=== PATIENT | male | born 1955 | race Caucasian/White ===

== ENCOUNTER 2017-12-08 15:31 | Emergency (ER) | payer BC ==
[2017-12-08 16:02] VITALS: BP 119/82
--- NOTE | 2017-12-08 17:18 | UC ---
Lower Extremity/Ankle HPI - HPI Summary HPI Summary: 62 y/o male presents to the urgent care c/o right foot pain for the past 3 months. Pain is localized at the bottom of mid foot and has increase w/ time, specially w/ walking. 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 Pt states yesterday he steeped in a stone accidentally and pain worsen. Pain now is 2/10 at rest and 9/10 w/ walking. Pt can move ankle w/o any difficulty. Pt took Motrin 400mg PO this morning to alleviate symptoms. Pt denies numbness or tinglings sensation over the Rt foot, any injury , calf pian, SOB, palpitations, chest pain, abdominal pain, N/V/D. - History of Current Complaint Chief Complaint: UCLowerExtremity Stated Complaint: RIGHT FOOT INJURY Time Seen by Provider: 12/08/17 17:17 Hx Obtained From: Patient Onset/Duration: Gradual Onset Severity Initially: Mild Pain Intensity: 9 - walking Pain Scale Used: 0-10 Numeric Aggravating Factor(s): Ambulation Alleviating Factor(s): Rest, Elevation, OTC Meds Able to Bear Weight: Yes - Risk Factors Gout Risk Factors: Negative DVT Risk Factors: Negative Septic Arthritis Risk Factor: Negative - Allergies/Home Medications Allergies/Adverse Reactions: Allergies Allergy/AdvReac Type Severity Reaction Status Date / Time No Known Allergies Allergy Verified 12/08/17 16:02 Home Medications: Home Medications Metoprolol Succinate 1 tab PO DAILY 12/08/17 [History Confirmed 12/08/17] PMH/Surg Hx/FS Hx/Imm Hx Previously Healthy: Yes Cardiovascular History: Hypertension - Surgical History Surgical History: Yes Surgery Procedure, Year, and Place: Lung surgery for pneumothorax spontaneous . Appendectomy 2008 - Family History Known Family History: Positive: Hypertension - Social History Occupation: Employed Full-time Lives: With Family Alcohol Use: None Substance Use Type: None Smoking Status (MU): Former Smoker Type: Cigarettes Amount Used/How Often: 2 ppd Length of Time of Smoking/Using Tobacco: 20 years Have You Smoked in the Last Year: No When Did the Patient Quit Smoking/Using Tobacco: Review of Systems Constitutional: Negative Skin: Negative Eyes: Negative ENT: Negative Respiratory: Negative Cardiovascular: Negative Gastrointestinal: Negative Genitourinary: Negative Motor: Negative Neurovascular: Negative Musculoskeletal: Decreased ROM - RT foot, Other: - RT foot pain Neurological: Negative Is Patient Immunocompromised?: No All Other Systems Reviewed And Are Negative: Yes Physical Exam - Summary Physical Exam Summary: Vital Signs Reviewed: Yes General : well developed, well nourished male w/o any apparent distress Eyes: Positive: Conjunctiva Clear - PERRLA, EOMI ENT: Positive: Normal ENT inspection, Hearing grossly normal, Pharynx normal, TMs normal Neck: Positive: Supple, Nontender, No Lymphadenopathy Respiratory: Positive: Chest non-tender, Lungs clear, Normal breath sounds, No respiratory distress Cardiovascular: Positive: RRR, No Murmur, Pulses Normal Abdomen Description: Positive: Nontender, No Organomegaly, Soft. Negative: CVA Tenderness (R), CVA Tenderness (L) Bowel Sounds: Positive: Present Musculoskeletal: Positive: Strength Intact, ROM Intact, No Edema, RT Foot/Toes: Pt is able to bear weight but ambulate with mild limping. RT foot :No surface trauma, ecchymosis, erythema, lesions, ulcers or break in skin integrity. The R foot is without obvious asymmetry or deformity when compared to the L foot. No bony step-off, No tenderness to palpation over toes, point tenderness over the solel side of mid foot and hindfoot, Decrease plantar/dorsiflexion, inversion/ eversion due to pain. Distal motor and neurovascular status are intact. Neurological Exam: Normal Psychological Exam: Normal Skin Exam: Normal Triage Information Reviewed: Yes Vital Signs: Initial Vital Signs Temp 98.6 F 12/08/17 15:59 Pulse 94 12/08/17 15:59 Resp 12 12/08/17 15:59 BP 119/82 12/08/17 15:59 Pulse Ox 98 12/08/17 15:59 Lower Extremity Course/Dx - Course Course Of Treatment: 62 y/o male presents to the urgent care c/o right foot pain for the past 3 months. Pain is localized at the bottom of mid foot and has increase w/ time, specially w/ walking. 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 Pt states yesterday he steeped in a stone accidentally and pain worsen. Pain now is 2/10 at rest and 9/ 10 w/ walking. Pt can move ankle w/o any difficulty. Pt took Motrin 400mg PO this morning to alleviate symptoms. Pt denies numbness or tinglings sensation over the Rt foot, any injury, calf pian, SOB, palpitations, chest pain, abdominal pain, N/V/D.Hx obtained.RT foot X-ray ordered, Impression:There was no fracture, dislocation, soft tissue swelling or FB noted. Probably plantar fasciitis or tendonitis. Pt's foot immobilized with magdy-bandage and given a post -op shoe to avoid flexion. Advised RICE, and Rx Ibuprofen PO for pain, If not improvement of symptoms to f/u with Orthopedic DR Porter referral for further evaluation and treatment. Pt understood and agreed with D/C instructions and left clinic ambulating. - Differential Dx/Diagnosis Differential Diagnosis/HQI/PQRI: Arthritis, Contusion, Dislocation, Fracture ( Closed), Gout, Sprain, Strain, Tendonitis, Other - plantar fasciitis Provider Diagnoses: 1- RT foot pain. 2- Rt foot plantar fasciitis Discharge - Sign-Out/Discharge Documenting (check all that apply): Patient Departure - D/c home All imaging exams completed and their final reports reviewed: Yes - Discharge Plan Condition: Stable Disposition: HOME Prescriptions: Ibuprofen TAB* [Motrin TAB* 800 MG] 800 mg PO Q6H PRN #30 tab PRN Reason: Pain Patient Education Materials: Plantar Fasciitis (ED) Referrals: Keila Gaytan [Primary Care Provider] - 1 Week Stephen Porter MD [Medical Doctor] - 1 Week Additional Instructions: 1-Please take Ibuprofen PO as directed after meals to alleviate pain and swelling. 2-Please apply ice, keep your foot immobilized with the Magdy bandage and avid flexion w/ the post-op shoe. Avoid strenuous exercise or standing for long periods of time 3- Please f/u with orthopedic Dr Porter or your PCP in 1 week if not improvement of symptoms for further evaluation and treatment. - Billing Disposition and Condition Condition: STABLE Disposition: Home - Attestation Statements Provider Attestation: Per institutional requirements, I have reviewed the chart, however, I was not consulted specifically or made aware of this patient by the midlevel provider. I did not personally evaluate, interact with , or disposition this patient.
--- NOTE | 2017-12-08 18:00 | RAD ---
INDICATION: 3 months of right plantar foot pain after " stepping on a rock" COMPARISON: None. TECHNIQUE: 3 views of the right foot were obtained. FINDINGS: The adequately corticated bones are properly aligned. Joint spaces appear maintained. No fracture, dislocation or focal bony abnormality is seen. IMPRESSION: Normal radiograph of the right foot. If the patient's symptoms persist, follow-up imaging is recommended.
== END 2017-12-08 18:37 | disposition home or self-care (01) ==
LOC: UCEAST 15:31
DX: Z87.891 Personal history of nicotine dependence (principal); M72.2 Plantar fascial fibromatosis; I10 Essential (primary) hypertension
CPT/HCPCS: 99203; G0463

== ENCOUNTER 2018-05-26 17:04 | Emergency (ER) | payer BC ==
[2018-05-26 17:20] VITALS: BP 144/93
--- NOTE | 2018-05-26 17:38 | UC ---
Ear Complaint HPI - HPI Summary HPI Summary: 62 yo male presents with right ear pain and decreased hearing. He tells me that for the last week he has been having "cold symptoms" and sinus congestion, but these are improving. Over the last 3 days he has had right ear pain and decreased hearing. Has been taking sudafed OTC. Denies fever, chills, sore throat, cough. - History of Current Complaint Chief Complaint: UCEar Stated Complaint: EAR ACHE Time Seen by Provider: 05/26/18 17:38 Hx Obtained From: Patient Onset/Duration: Sudden Onset Severity Initially: Mild Severity Currently: Mild Pain Intensity: 2 Pain Scale Used: 0-10 Numeric - Allergies/Home Medications Allergies/Adverse Reactions: Allergies Allergy/AdvReac Type Severity Reaction Status Date / Time No Known Allergies Allergy Verified 05/26/18 17:21 Home Medications: Home Medications Losartan Potassium 100 mg PO 05/26/18 [History] PMH/Surg Hx/FS Hx/Imm Hx Cardiovascular History: Hypertension - Surgical History Surgical History: Yes Surgery Procedure, Year, and Place: Lung surgery for pneumothorax spontaneous . Appendectomy 2008 - Family History Known Family History: Positive: Hypertension - Social History Lives: With Family Alcohol Use: None Substance Use Type: None Smoking Status (MU): Former Smoker Type: Cigarettes Amount Used/How Often: 2 ppd Length of Time of Smoking/Using Tobacco: 20 years Have You Smoked in the Last Year: No When Did the Patient Quit Smoking/Using Tobacco: Review of Systems All Other Systems Reviewed And Are Negative: Yes Constitutional: Positive: Negative Skin: Positive: Negative Eyes: Positive: Negative ENT: Positive: Ear Ache, Nasal Discharge, Sinus Congestion Respiratory: Positive: Negative Cardiovascular: Positive: Negative Gastrointestinal: Positive: Negative Neurovascular: Positive: Negative Neurological: Positive: Negative Psychological: Positive: Negative Physical Exam - Summary Physical Exam Summary: GENERAL: NAD. WDWN. No pain distress. SKIN: No rashes, sores, lesions, or open wounds. HEENT: Head: AT/NC Eyes: EOM intact. Conjunctiva clear without inflammation or discharge. Ears: Hearing grossly normal. RIGHT TM occluded by brown hard cerumen. S/p irrigation and disimpaction. TMs intact, no bulging, erythema, or edema. Nose: Nasal mucosa pink and moist. NTTP maxillary and frontal sinus. Throat: Posterior oropharynx without exudates, erythema, or tonsillar enlargement. Uvula midline. NECK: Supple. Nontender. No lymphadenopathy. CHEST: CTAB. No r/r/w. No accessory muscle use. Breathing comfortably and in no distress. CV: RRR. Without m/r/g. Pulses intact. Cap refill <2seconds NEURO: Alert. PSYCH: Age appropriate behavior. Triage Information Reviewed: Yes Vital Signs: Initial Vital Signs Temp 99.0 F 05/26/18 17:17 Pulse 69 05/26/18 17:17 Resp 18 05/26/18 17:17 BP 144/93 05/26/18 17:17 Pulse Ox 99 05/26/18 17:17 Vital Signs Reviewed: Yes Ear Complaint Course/Dx - Course Course Of Treatment: Right ear cerumen impaction with successful disimpaction with irrigation. Pt experienced significant relief of his discomfort. - Differential Dx/Diagnosis Provider Diagnosis: Cerumen impaction Discharge - Sign-Out/Discharge Documenting (check all that apply): Patient Departure All imaging exams completed and their final reports reviewed: No Studies - Discharge Plan Condition: Stable Disposition: HOME Patient Education Materials: Cerumen Impaction (ED) Referrals: Keila Gaytan [Primary Care Provider] - Additional Instructions: If you develop a fever, shortness of breath, chest pain, new or worsening symptoms - please call your PCP or go to the ED. Your blood pressure was high at todays visit. Please see your primary provider within 4 weeks for recheck and re-evaluation. - Billing Disposition and Condition Condition: STABLE Disposition: Home
== END 2018-05-26 18:31 | disposition home or self-care (01) ==
LOC: UCEAST 17:04
DX: H61.21 Impacted cerumen, right ear (principal); Z87.891 Personal history of nicotine dependence
CPT/HCPCS: 99212; G0463

== ENCOUNTER 2018-09-01 11:19 | Emergency (ER) | payer BC ==
--- NOTE | 2018-09-01 11:51 | UC ---
Respiratory Complaint HPI - HPI Summary HPI Summary: 63 yo male presents with sweating. He tells me that last night he developed a frontal headache. In the middle of the night he woke up and was "drenched" in sweat and he figured he had a fever, but did not take his temperature. This morning he felt that he was still "sweaty", thus took ibuprofen. His headache has nearly resolved and he feels much better overall after taking ibuprofen. He has been feeling well otherwise and is eating and drinking normally. He does not smoke currently, but he used to. Denies recent illness, dizziness, numbness , tingling, sinus symptoms, sore throat, cough, SOB, chest pain, abdominal pain , n/v/d/c, dysuria. He does have a PMH of "skipped heart beat" for which he takes metoprolol. - History of Current Complaint Chief Complaint: UCGeneralIllness Stated Complaint: FEVER/ACHES Time Seen by Provider: 09/01/18 11:51 Hx Obtained From: Patient Onset/Duration: Sudden Onset Severity Initially: Moderate Severity Currently: Moderate Pain Intensity: 5 Pain Scale Used: 0-10 Numeric - Allergies/Home Medications Allergies/Adverse Reactions: Allergies Allergy/AdvReac Type Severity Reaction Status Date / Time No Known Allergies Allergy Verified 09/01/18 11:35 Home Medications: Home Medications amLODIPine TAB* [Norvasc 5 mg TAB*] 5 mg PO DAILY 09/01/18 [History Confirmed ] PMH/Surg Hx/FS Hx/Imm Hx - Additional Past Medical History Additional PMH: Skipped heart beat Cardiovascular History: Hypertension - Surgical History Surgical History: Yes Surgery Procedure, Year, and Place: Lung surgery for pneumothorax spontaneous . Appendectomy 2008 - Family History Known Family History: Positive: Hypertension - Social History Lives: With Family Alcohol Use: None Substance Use Type: None Smoking Status (MU): Former Smoker Type: Cigarettes Amount Used/How Often: 2 ppd Length of Time of Smoking/Using Tobacco: 20 years Have You Smoked in the Last Year: No When Did the Patient Quit Smoking/Using Tobacco: Review of Systems All Other Systems Reviewed And Are Negative: Yes Constitutional: Positive: Other - sweats Skin: Positive: Negative Eyes: Positive: Negative ENT: Positive: Negative Respiratory: Positive: Negative Cardiovascular: Positive: Negative Gastrointestinal: Positive: Negative Genitourinary: Positive: Negative Motor: Positive: Negative Neurovascular: Positive: Negative Musculoskeletal: Positive: Negative Neurological: Positive: Headache Psychological: Positive: Negative Physical Exam - Summary Physical Exam Summary: GENERAL: NAD. WDWN. No pain distress. SKIN: No rashes, sores, ulcers, masses, lesions. HEENT: Head: AT/NC. Eyes: PERRLA. EOM intact. Conjunctiva clear without inflammation or discharge. Ears: Hearing grossly normal. TMs intact, no bulging, erythema, or edema. No hemotympanum Nose: Nasal mucosa pink and moist. NTTP maxillary and frontal sinus. Throat: Posterior oropharynx without exudates, erythema, or tonsillar enlargement. Uvula midline. NECK: Supple. Nontender. FROM CHEST: CTAB. No r/r/w. No accessory muscle use. Breathing comfortably and in no distress. CV: Skipped beat. Possible bigeminy vs trigeminy. Pulses intact. Brisk cap refill. ABDOMEN: Soft. NTTP. Bowel sounds present MSK: FROM in B/L UEs and LEs with symmetric strength. NEURO: A&Ox3. 3 word recall, remote, recent memory, ability to follow 2-step directions, and attention intact. CN: II: Peripheral villalobos intact. Vision normal. III, IV, : EOMI. No nystagmus. PERRLA. V: Sensations intact and symmetric. Opens mouth and clenches teeth. VII: No facial asymmetry. Forehead wrinkles. Grins, shuts eyes, frowns, puffs cheeks. VIII: Hearing intact to finger rub. IX, X: Swallows and coughs. Uvula midline. XI: Shrugs shoulders. Turns head against resistance. XII: No tongue deviation [id number] are intact. Gait with normal base. Romberg: maintains balance, no pronator drift. Normal speech. No facial drooping. PSYCH: Age appropriate behavior. Triage Information Reviewed: Yes Vital Signs: Initial Vital Signs Temp 97.5 F 09/01/18 11:29 Pulse 62 09/01/18 11:29 Resp 18 09/01/18 11:29 BP 151/88 09/01/18 11:29 Pulse Ox 95 09/01/18 11:29 Laboratory Tests 09/01/18 13:10 POC Urine Color Yellow POC Urine Clarity Clear POC Urine pH 5.0 POC Ur Specif [place] 1.025 POC Urine Protein Trace A POC Ur Glucose (UA) Negative POC Urine Ketones Negative POC Urine Blood 1+ A POC Urine Nitrite Negative POC Urine Bilirubin Negative POC Urine Urobilinogen 0.2 POC U Leukocyte Esteras Negative Vital Signs Reviewed: Yes Respiratory Course/Dx - Course Course Of Treatment: CXR: IMPRESSION: #. Stigmata of probable obstructive lung disease. No acute pulmonary or cardiac process evident. EKG: Sinus. 76 bpm. Possible trigeminy. No STEMI. As read by Dr. Jones. UA without sign of infection. I called pt's primary doctor and spoke with Deshawn PARKER who has access to pt's records. Deshawn confirmed that pt has had trigeminy since at least Apr 2018 and is being followed by cards for this. He scheduled an appointment with pt's PCP for tomorrow morning. I discussed this and results of today's testing with the pt and suggested drawing CBC, CMP, and mag to further evaluate his symptoms, but pt declined. He wishes to continue monitoring his symptoms and if they return he will follow up. Upon discharge he is feeling well and all of his symptoms have resolved. - Differential Dx/Diagnosis Provider Diagnosis: Headache, Sweating Discharge - Sign-Out/Discharge Documenting (check all that apply): Patient Departure All imaging exams completed and their final reports reviewed: Yes - Discharge Plan Condition: Stable Disposition: HOME Patient Education Materials: Viral Syndrome (ED) Referrals: Keila Gaytan [Primary Care Provider] - 1 Day Additional Instructions: If you develop a fever, shortness of breath, chest pain, new or worsening symptoms - please call your PCP or go to the ED immediately. Your blood pressure was elevated at todays visit. Please see your primary provider within 4 weeks for recheck and re-evaluation. 1) I recommend that you follow up with your Primary Doctor tomorrow for a recheck - Billing Disposition and Condition Condition: STABLE Disposition: Home - Attestation Statements Provider Attestation: I was available for consult. This patient was seen by the ROHINI. The patient was not presented to, seen by, or examined by me. -Sumeet
[2018-09-01 13:41] VITALS: BP 150/90
== END 2018-09-01 13:39 | disposition home or self-care (01) ==
LOC: UCEAST 11:19
DX: R51 Headache (principal); L74.9 Eccrine sweat disorder, unspecified; I10 Essential (primary) hypertension; Z87.891 Personal history of nicotine dependence
CPT/HCPCS: 71046; 81003; 93005; 99211; G0463

== ENCOUNTER 2018-09-02 10:34 | Emergency (ER) | payer BC, MEDICARE ==
[2018-09-02] MEDS ORDERED: NS 0.9% 1000 ML** 1,000 ML IV ONE (11:13)
[2018-09-02] MEDS ORDERED: Acetaminophen TAB* 325 MG PO ONE (11:15)
[2018-09-02] MEDS ORDERED: Piperacillin/Tazobac ADVAN(*) 3.375 GM in NS 0.9% 100 ML* 100 ML IVPB ONE (11:22)
[2018-09-02] MEDS: NS 0.9% 1000 ML** 1,000 ML IV.FLUID IV ONE ×2 (11:30→11:58)
--- NOTE | 2018-09-02 11:42 | ED ---
Complex/Multi-Sys Presentation - HPI Summary HPI Summary: This patient is a 63 year old M presenting to [facility] with a chief complaint of fever present since the night of 08/31/18. Per triage, the pt states high temp 101.0; pt went to convenient care yesterday and was told to go to the ED if not improved. Pt reports KAY, neck pain, fever, sore chest, and chronic back pain. Pt denies sore throat, cough, and abdominal pain, nausea, vomiting. He reports that no one is sick at home. Pt has a PMHx of HTN and a fib. Per triage, the patient rates the pain 6/10 in severity. Pt does not smoke, drink, or use drugs. - History Of Current Complaint Chief Complaint: EDFever Time Seen by Provider: 09/02/18 11:17 Hx Obtained From: Patient Onset/Duration: Lasting Days - 08/31/18, Still Present Timing: Constant Severity Currently: Moderate - 6/10 Severity Initially: Moderate Associated Signs And Symptoms: Positive: Headache, Back Pain, Fever, Other - pos - sore chest, neck pain; neg - sore throat. Negative: Cough, Nausea, Vomiting, Abdominal Pain - Allergies/Home Medications Allergies/Adverse Reactions: Allergies Allergy/AdvReac Type Severity Reaction Status Date / Time No Known Allergies Allergy Verified 09/02/18 10:50 PMH/Surg Hx/FS Hx/Imm Hx Endocrine/Hematology History: Denies: Hx Diabetes, Hx Thyroid Disease Cardiovascular History: Reports: Hx Hypertension Denies: Hx Pacemaker/ICD Respiratory History: Reports: Other Respiratory Problems/Disorders - lung surgery long time ago Denies: Hx Asthma, Hx Chronic Obstructive Pulmonary Disease (COPD) GI History: Denies: Hx Ulcer History: Denies: Hx Renal Disease Sensory History: Denies: Hx Hearing Aid Psychiatric History: Denies: Hx Panic Disorder - Surgical History Surgery Procedure, Year, and Place: Lung surgery for pneumothorax spontaneous . Appendectomy 2008 Infectious Disease History: No Infectious Disease History: Denies: Hx Clostridium Difficile, Hx Hepatitis, Hx Human Immunodeficiency Virus (HIV), Hx of Known/Suspected MRSA, Hx Shingles, Hx Tuberculosis, Hx Known/ Suspected VRE, Hx Known/Suspected VRSA, History Other Infectious Disease, Traveled Outside the [place] in Last 30 Days - Family History Known Family History: Positive: Hypertension - Social History Alcohol Use: None Substance Use Type: Reports: None Hx Tobacco Use: No Smoking Status (MU): Former Smoker Type: Cigarettes Amount Used/How Often: 2 ppd Length of Time of Smoking/Using Tobacco: 20 years Have You Smoked in the Last Year: No Review of Systems Positive: Fever Negative: Sore Throat Positive: Other - pos - sore chest Negative: Cough Negative: Abdominal Pain, Vomiting, Nausea Positive: Other - pos - neck pain, chronic back pain Positive: Headache All Other Systems Reviewed And Are Negative: Yes Physical Exam - Summary Physical Exam Summary: VITAL SIGNS: Reviewed. GENERAL: Patient is a well-developed and nourished male who is lying comfortable in the stretcher. Patient is not in any acute respiratory distress. No meningeal signs. HEAD AND FACE: No signs of trauma. No ecchymosis, hematomas or skull depressions. No sinus tenderness. EYES: PERRLA, EOMI x 2, No injected conjunctiva, no nystagmus. EARS: Hearing grossly intact. Ear canals and tympanic membranes are within normal limits. MOUTH: Oropharynx within normal limits. NECK: Supple, trachea is midline, no adenopathy, no JVD, no carotid bruit, no c- spine tenderness, neck with full ROM. CHEST: Symmetric, no tenderness at palpation LUNGS: Clear to auscultation bilaterally. No wheezing or crackles. CVS: Regular rate and rhythm, S1 and S2 present, no murmurs or gallops appreciated. ABDOMEN: Soft, non-tender. No signs of distention. No rebound no guarding, and no masses palpated. Bowel sounds are normal. EXTREMITIES: FROM in all major joints, no edema, no cyanosis or clubbing. NEURO: Alert and oriented x 3. No acute neurological deficits. Speech is normal and follows commands. GCS 15 SKIN: Dry and warm. Triage Information Reviewed: Yes Vital Signs On Initial Exam: Initial Vitals Temp Pulse Resp BP Pulse Ox 101.0 F 114 19 136/92 96 09/02/18 10:45 09/02/18 10:45 09/02/18 10:45 09/02/18 10:45 09/02/18 10:45 Vital Signs Reviewed: Yes - Davis Coma Scale Best Eye Response: 4 - Spontaneous Best Motor Response: 6 - Obeys Commands Best Verbal Response: 5 - Oriented Coma Scale Total: 15 Diagnostics - Vital Signs Vital Signs Temp Pulse Resp BP Pulse Ox 07/03/19 10:45 101.0 F 114 19 136/92 96 - Laboratory Result Diagrams: 09/02/18 11:34 09/02/18 11:34 Lab Statement: Any lab studies that have been ordered have been reviewed, and results considered in the medical decision making process. - Radiology CXR Radiology Interpretation Completed By: Radiologist Summary of Radiographic Findings: CXR reveals, per radiologist, IMPRESSION: Hyperinflated lung villalobos without evidence of active cardiopulmonary disease. ED physician has reviewed this radiology report. - CT Brain CT CT Interpretation Completed By: Radiologist Summary of CT Findings: Brain CT reveals, per radiologist, IMPRESSION: NO EVIDENCE FOR ACUTE INTRACRANIAL ABNORMALITY. ED physician has reviewed this radiology report. - EKG 1127 Cardiac Rate: Tachycardia - 108 bpm EKG Rhythm: Sinus Tachycardia Summary of EKG Findings: EKG reveals sinus tachycardia 108 bpm, no ST elevation Re-Evaluation - Re-Evaluation First Eval Re-Evaluation Time: 12:15 Comment: Upon further inspection pt has rash on left arm with central clearing Second Eval Re-Evaluation Time: 14:45 Comment: Discussed results and plan of care with pt. And reexamination before discharge the patient doesnt have any neck pain, he doesnt have any meningeal signs. Patient is hemodynamically stable alert and oriented 3. Pt is agreeable with discharge. Complex Multi-Symp Course/Dx Assessment/Plan: This patient is a 63 year old M presenting to [facility] with a chief complaint of fever present since the night of 08/31/18. Per triage, the pt states high temp 101.0; pt went to convenient care yesterday and was told to go to the ED if not improved. Pt reports KAY, neck pain, fever, sore chest, and chronic back pain. Pt denies sore throat, cough, and abdominal pain, nausea, vomiting. He reports that no one is sick at home. Pt has a PMHx of HTN and a fib. Per triage, the patient rates the pain 6/10 in severity. Pt does not smoke , drink, or use drugs. Patients past medical history significant for hypertension. In the ED course after pulses were taken the patient was positive for sepsis criteria. Therefore, the patient was given IV fluids 30 cc s per KG and since we dont have a source I started with the vancomycin and Zosyn. These medications were given after the patient had blood cultures. Blood test results without any significant abnormality except for glucose of 129 , CRP of 53.4. Patient was given also motrin for the fever, he was given Zofran for nausea and morphine for headache. After the patient was hydrated, and given the above medications, the patients symptoms have significantly improved. I reexamined the patient and I noticed that the patient has a rash in the left arm which has central clearing. 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 The patients headache and neck pain has resolved. Head CT impression: no evidence for acute intracranial pathology. I offered the patient a lumbar puncture however the patient declined. Patient reports that he wants to go home since the he is feeling better. He doesnt have any complaints at this time. Therefore, I will give a prescription for doxycycline for the patient and he was given specific instructions that if he develops further fever despite taking Tylenol or ibuprofen, or develops a headache or neck pain, or any other symptoms he should immediately return to ED for further workup and management. The patient and the patients understands and agrees. And reexamination before discharge the patient doesnt have any neck pain, he doesnt have any meningeal signs. Patient is hemodynamically stable alert and oriented 3. - Diagnoses Provider Diagnoses: Fever, Rash, Erythema migrans (Lyme disease) Discharge - Sign-Out/Discharge Documenting (check all that apply): Patient Departure - Discharge Patient Received Moderate/Deep Sedation with Procedure: No - Discharge Plan Condition: Stable Disposition: HOME Prescriptions: DOXYcycline CAP(*) [DOXYcycline 100MG CAP(*)] 100 mg PO BID #42 cap Patient Education Materials: Lyme Disease (ED), Fever in Adults (ED), Acute Rash (ED) Referrals: Keila Gaytan [Primary Care Provider] - 3 Days Additional Instructions: Follow up with your primary care provider within three days RETURN TO THE ED FOR ANY WORSENING OR NEW SYMPTOMS. - Billing Disposition and Condition Condition: STABLE Disposition: Home - Attestation Statements Document Initiated by Scribe: Yes Documenting Scribe: Jaymie Botello Provider For Whom Scribe is Documenting (Include Credential): Dr. Yeison Izquierdo MD Scribe Attestation: Jaymie Amaya, scribed for Dr. Yeison Izquierdo MD on 09/02/18 at 2146. Scribe Documentation Reviewed: Yes Provider Attestation: The documentation as recorded by the scribe, Jaymie Botello accurately reflects the service I personally performed and the decisions made by me, Dr. Yeison Izquierdo MD Status of Scribe Document: Viewed
[2018-09-02 11:52] LABS: ABS Lymphocytes 0.5 10^3/ul (1.0-4.8); ABS Monocytes 0.5 10^3/ul (0-0.8); ABS Neutrophils 2.8 10^3/ul (1.5-7.7); Eosinophil % 0.2 %; Hematocrit 45 % (42-52); Hemoglobin 15.2 g/dL (14.0-18.0); Lymphocyte % 13.3 %; Mean Corpuscular HGB Conc 34 g/dL (31-36); Mean Corpuscular Hemoglobin 30 pg (27-31); Mean Corpuscular Volume 88 fL (80-94); Mean Platelet Volume 8.3 fL (7.4-10.4); Nucleated Red Blood Cells % 0.1; Platelet Count 174 10^3/uL (150-450); Red Blood Count 5.12 10^6 /uL (4.18-5.48); Red Cell Distribution Width 14 % (10-15); White Blood Count 3.9 10^3/uL (3.5-10.8)
[2018-09-02] MEDS ORDERED: Vancomycin(*) 1,000 MG VIAL IVPB SCH (12:00)
[2018-09-02] MEDS ORDERED: Vancomycin 1500 MG IV - x ONCE IVPB ONE ×2 (12:00)
[2018-09-02 12:03] LABS: INR 1.11 (0.82-1.09)
[2018-09-02 12:17] LABS: Albumin 3.7 g/dL (3.2-5.2); Albumin/Globulin Ratio 1.1 (1-3); BUN/Creatinine Ratio 18.6 (8-20); Calcium 9.6 mg/dL (8.6-10.3); EGFR Non-African American 89.2 (>60); Globulin 3.4 g/dL (2-4); Potassium 4.2 mmol/L (3.5-5.0); Total Bilirubin 0.6 mg/dL (0.2-1.0); Total Protein 7.1 g/dL (6.4-8.9)
[2018-09-02 12:33] LABS: C Reactive Protein 53.43 mg/L (<8.01)
[2018-09-02] MEDS ORDERED: Ondansetron INJ* 2 MG/ML VIAL IV ONE (13:31)
[2018-09-02] MEDS ORDERED: Morphine 4 MG/ML VIAL (1 ml) 4 MG/ML VIAL IV ONE (13:31)
[2018-09-02] MEDS ORDERED: Ibuprofen TAB* 800 MG PO ONE (14:55)
[2018-09-02 15:40] VITALS: BP 145/95
== END 2018-09-02 15:36 | disposition home or self-care (01) ==
LOC: ED 10:34
DX: A26.0 Cutaneous erysipeloid (principal); Z87.891 Personal history of nicotine dependence
CPT/HCPCS: 36415; 70450; 71046; 80053; 83605; 83735; 83880; 84484; 85025; 85384; 85610; 85652; 85730; 86140; 86618; 87040; 93005; 96361; 96365; 96366; 96375; 99282; A9270-GY; J2543; J3370

== ENCOUNTER 2018-09-03 08:20 | Emergency (ER) | payer MEDICARE ==
--- NOTE | 2018-09-03 08:56 | ED ---
Complex/Multi-Sys Presentation - HPI Summary HPI Summary: Pt. is a 63 y.o male who presents to the for ongoing fever x 3 days. Pt. states on Friday he started with a headache, fever, and neck pain. Pt. seen in ED yesterday and had labs, blood cultures, CT brain, CXR, and lyme titer done. Labs were unremarkable other than mildly elevated CRP. Pt. was found to have a rash on left arm yesterday. Pt. is a escalona. Pt. was started on doxycycline yesterday. Pt. states he felt really great when he left the ER yesterday but woke up with a fever again this morning and presents for re-exam. Pt. denies CP , SOB, abd. pain, V/D, urinary sxs. Pt. states he took motrin this morning and his neck pain resolved and h/a is mild at this time. Sxs are moderate in severity. - History Of Current Complaint Chief Complaint: EDHeadache Time Seen by Provider: 09/03/18 08:33 Hx Obtained From: Patient - Allergies/Home Medications Allergies/Adverse Reactions: Allergies Allergy/AdvReac Type Severity Reaction Status Date / Time No Known Allergies Allergy Verified 09/03/18 08:26 PMH/Surg Hx/FS Hx/Imm Hx Previously Healthy: Yes Endocrine/Hematology History: Denies: Hx Diabetes, Hx Thyroid Disease Cardiovascular History: Reports: Hx Hypertension Denies: Hx Pacemaker/ICD Respiratory History: Reports: Other Respiratory Problems/Disorders - lung surgery long time ago Denies: Hx Asthma, Hx Chronic Obstructive Pulmonary Disease (COPD) GI History: Denies: Hx Ulcer History: Denies: Hx Renal Disease Sensory History: Denies: Hx Hearing Aid Psychiatric History: Denies: Hx Panic Disorder - Surgical History Surgery Procedure, Year, and Place: Lung surgery for pneumothorax spontaneous . Appendectomy 2009 Infectious Disease History: No Infectious Disease History: Denies: Hx Clostridium Difficile, Hx Hepatitis, Hx Human Immunodeficiency Virus (HIV), Hx of Known/Suspected MRSA, Hx Shingles, Hx Tuberculosis, Hx Known/ Suspected VRE, Hx Known/Suspected VRSA, History Other Infectious Disease, Traveled Outside the [place] in Last 30 Days - Family History Known Family History: Positive: Hypertension, Non-Contributory - Social History Occupation: Employed Full-time Lives: With Family Alcohol Use: None Substance Use Type: Reports: None Hx Tobacco Use: No Smoking Status (MU): Former Smoker Type: Cigarettes Amount Used/How Often: 2 ppd Length of Time of Smoking/Using Tobacco: 20 years Have You Smoked in the Last Year: No Review of Systems Positive: Fever, Chills Eyes: Negative ENT: Negative Cardiovascular: Negative Negative: Palpitations, Chest Pain Respiratory: Negative Negative: Shortness Of Breath, Cough Gastrointestinal: Negative Negative: Abdominal Pain, Vomiting, Diarrhea Genitourinary: Negative Negative: dysuria Musculoskeletal: Negative Negative: Arthralgia, Myalgia Positive: Rash - left upper arm Positive: Headache. Negative: Weakness, Paresthesia, Numbness All Other Systems Reviewed And Are Negative: Yes Physical Exam Triage Information Reviewed: Yes Vital Signs On Initial Exam: Initial Vitals Temp Pulse Resp BP Pulse Ox 96.4 F 88 18 144/78 96 09/03/18 08:22 09/03/18 08:22 09/03/18 08:22 09/03/18 08:22 09/03/18 08:22 Vital Signs Reviewed: Yes Appearance: Positive: Well-Appearing - Pt. sitting up in bed in NAD. present. Pleasant. Skin: Positive: Warm, Dry, Other - Well demarcated anular rash noted to the left upper arm. No induration or fluctuance. Head/Face: Positive: Normal Head/Face Inspection Eyes: Positive: Normal, EOMI, WILTON, Conjunctiva Clear ENT: Positive: Pharynx normal, TMs normal Neck: Positive: Supple Respiratory/Lung Sounds: Positive: Clear to Auscultation, Breath Sounds Present. Negative: Rales, Rhonchi, Wheezes Cardiovascular: Positive: Normal, RRR Abdomen Description: Positive: Nontender, Soft Musculoskeletal: Positive: Normal, Strength/ROM Intact Neurological: Positive: Normal, CN Intact II-III Psychiatric: Positive: Affect/Mood Appropriate Diagnostics - Vital Signs Vital Signs Temp Pulse Resp BP Pulse Ox 09/03/18 08:22 96.4 F 88 18 144/78 96 - Laboratory Lab Statement: Any lab studies that have been ordered have been reviewed, and results considered in the medical decision making process. Complex Multi-Symp Course/Dx Course Of Treatment: Pt. presenting with ongoing h/a, neck pain and fever. He took motrin [employer]SE [employer]ACTITION[employer] and has no neck pain in ed and only a minimal h/a. No neuro deficits and no nuchal rigidity on exam. Pt. only had two doses of doxy. so far. Case discussed with Dr. Galicia. Suspect sxs related to tick born illness. Will not do any additional testing today. Advised to continue doxy as directed. Can rotate between tylenol and motrin as directed. To increase fluids and rest. WIll return to ER over weekend if sxs change or worsen. To see PCP on Friday. Pt. understands and agrees with plan. - Diagnoses Provider Diagnoses: Fever, At high risk for tick borne illness Discharge - Sign-Out/Discharge Documenting (check all that apply): Patient Departure Patient Received Moderate/Deep Sedation with Procedure: No - Discharge Plan Condition: Good Disposition: HOME Patient Education Materials: Lyme Disease (ED), Fever in Adults (ED) Referrals: Keila Gaytan [Primary Care Provider] - Additional Instructions: Follow up with PCP in 1-2 days Continue doxycycline as directed Continue tylenol or motrin for fever and pain as directed Increase fluids and rest Return to ER if symptoms change or worsen - Billing Disposition and Condition Condition: GOOD Disposition: Home
[2018-09-03 09:13] VITALS: BP 145/62
== END 2018-09-03 09:11 | disposition home or self-care (01) ==
LOC: ED 08:20
DX: R50.9 Fever, unspecified (principal); R51 Headache; R21 Rash and other nonspecific skin eruption; Z87.891 Personal history of nicotine dependence
CPT/HCPCS: 99282